=== PATIENT | male | born 1975 | race Caucasian/White ===

== ENCOUNTER 2020-07-24 13:50 | Outpatient (CLI) | payer BC | END 2020-07-24 13:51 | disposition home or self-care (01) | LOC: BICRAD 13:50 | PROVIDERS: ATTEND Family Medicine | DX: S70.11XA Contusion of right thigh, initial encounter (principal) ==

== ENCOUNTER 2020-08-25 18:37 | Emergency (ER) | payer BC ==
[2020-08-25] MEDS ORDERED: Lidocaine 1% PF 5 ML VIAL ONE (18:55)
[2020-08-25] MEDS ORDERED: Bacitracin 1 PK ONE ×2 (20:00)
== END 2020-08-25 20:10 | disposition home or self-care (01) ==
LOC: ERS 18:37
DX: S61.412A Laceration without foreign body of left hand, initial encounter (principal); W22.8XXA Striking against or struck by other objects, initial encounter
CPT/HCPCS: 12002